=== PATIENT | male | born 2005 | race Caucasian/White ===

== ENCOUNTER 2025-03-27 15:37 | Emergency (ER) | payer BC, SELFPAY ==
--- NOTE | 2025-03-27 15:45 | ED_ITS ---
HPI - Eye Problem General Chief complaint: Eye Problems Stated complaint: Contact Removed/Eye Irritation Time Seen by Provider: 03/27/25 16:10 Source: patient and RN notes reviewed Mode of arrival: ambulatory Limitations: no limitations History of Present Illness HPI Narrative: 19-year-old male presents concern for foreign body in his right eye. Reports he woke up this morning with irritated eye that had a sense of something in it. He reports he thought he took his contacts out last night, he usually throws them away. He is concerned perhaps he left contact in his eye. He denies drainage or vision changes chief complaint: eye redness Related Data Allergies Allergy/AdvReac Type Severity Reaction Status Date / Time No Known Allergies Allergy Mild Verified 03/27/25 15:44 Review of Systems Review of Systems: CONSTITUTIONAL: Denies malaise, chills, sweats, or fever. EYES: Denies visual changes. Reports right eye redness, irritation. Denies discharge ENT: Denies rhinorrhea, congestion, sinus pain, otalgia or sore throat. SKIN: Denies rash or itching. NEUROLOGIC: Denies numbness, weakness, or headache. PSYCHIATRIC: Denies anxiety or depression. All systems reviewed & are unremarkable except as noted in HPI and below PMFSH Comments At time of signature, agree with nursing past medical, surgical, social and family history. There is no relevant family history pertinent to the presenting complaint Exam Narrative: GENERAL: Well-appearing, well-nourished, and in no acute distress. HEAD: Normocephalic, atraumatic. EYES: PERRLA and EOMI. No nystagmus. Right sclera injected, conjunctivae clear. Upper and lower eyelid unremarkable, no periorbital edema noted ENT: Nares clear, turbinates pink, no rhinorrhea or epistaxis. Mucous membranes moist. TM pearly coombs with sharp light reflex bilaterally; no tragal tenderness. NECK: Supple. CHEST: No respiratory distress. Speaks in full sentences. HEART: Regular rate and rhythm. SKIN: Warm, dry, no visible rash. NEURO: Alert and oriented x3. PSYCH: Normal mood and affect Course Course Emergency Course: Patient is aware of diagnosis, understands and agrees to treatment plan. Anticipatory guidance given. Patient agrees to follow-up as directed and is aware of reasons to seek care at the emergency department. Portions of this record may have been created with voice recognition software Level of Care: Express Care Visit Vital Signs Vital signs: Reviewed. Procedures Other Procedure Procedure 1: Other Procedure: Tetracaine 1 gtt instilled in right eye, fluorescein stain applied. Corneal abrasion noted upon ardon lamp exam at approximately 3 o'clock in relation to the pupil. Eye washed with NS 100 ml. No foreign bodies or Ibis sign noted. MDM - Eye Problem MDM Narrative Medical decision making narrative: Consideration of the following conditions may be warranted for the presenting problem, they are not final diagnoses: Bacterial conjunctivitis, allergic conjunctivitis, viral conjunctivitis, foreign body, blepharitis, chalazion, hordeolum, corneal abrasion, preseptal cellulitis, orbital cellulitis. No evidence of proptosis, ophthalmoplegia, vision loss, pain with eye movement. Exam findings show no acute concerns or changes; patient is non-toxic appearing and is in no distress. Patient is appropriate for outpatient treatment and follow-up. Critical Care Time Critical Care Time Critical Care Time: No Discharge Plan Discharge Clinical Impression: Corneal abrasion Patient Disposition: Home Condition: Stable Instructions: Corneal Abrasion (ED) Additional Instructions: Corneal abrasions will heal in 1-2 days. Keep your eye shut and wear sunglasses or stay in low light to avoid light sensitivity. Do not touch or rub your eye or use a fabric patch You may take Tylenol or ibuprofen for pain Follow-up with PCP or business systems developer if condition is not improving in 2-3days. Patient Language: Frisian Prescriptions: New polymyxin B sulf-trimethoprim 10,000 unit- 1 mg/mL drops 1 drp RIGHT EYE Q3H 7 Days Qty: 10 0RF Rx Instructions: while awake; do not exceed 6 doses in 24 hours Follow-up/Referrals: PHYSICIAN,FLIGHT SUPERINTENDENT [Primary Care Provider, Internal Medicine] Time of Disposition: 16:21
[2025-03-27 15:47] VITALS: BP 128/89; PULSE 98; RESP 18; TEMP 36.8; O2SAT 99
== END 2025-03-27 16:22 | disposition home or self-care (01) ==
PROVIDERS: Emergency Provider Nurse Practitioner
DX: S05.01XA Injury of conjunctiva and corneal abrasion without foreign body, right eye, initial encounter (principal); X58.XXXA Exposure to other specified factors, initial encounter
CPT/HCPCS: 99203; A9270; G0463